=== PATIENT | female | born 2000 | race Caucasian/White ===

== ENCOUNTER 2022-04-15 21:29 | Emergency (ER) | payer MEDICAID | END 2022-04-15 23:00 | disposition left against medical advice (07) | LOC: ED 21:29 | DX: R07.9 Chest pain, unspecified (principal); M54.9 Dorsalgia, unspecified; R10.9 Unspecified abdominal pain; Z53.21 Procedure and treatment not carried out due to patient leaving prior to being seen by health care provider ==